=== PATIENT | male | born 1930 | race Caucasian/White ===

== ENCOUNTER 2017-11-27 11:34 | Emergency (ER) | payer MEDICARE, BC ==
[2017-11-27 12:14] LABS: CHLORIDE,CL 107 mmol/L (98-107); SODIUM,NA 140 mmol/L (136-145)
[2017-11-27 12:23] VITALS: BP 162/75
--- NOTE | 2017-11-27 12:40 | EDM.PDOC ---
ED HPI GENERAL MEDICAL PROBLEM - General Chief Complaint: Cardiovascular Problem Stated Complaint: Fullness Time Seen by Provider: 11/27/17 11:41 Source of Information: Reports: Patient, Family History Limitations: Reports: No Limitations - History of Present Illness INITIAL COMMENTS - FREE TEXT/NARRATIVE: Patient complaining of sensation of fullness in chest area. Points to entire chest and epigastric region. He thinks it feels like it is reflux-related and says that he has felt this way in the past and it was due to reflux. Son says patient ate much more than usual last evening, including 6 cookies, fudgepop, and a full dinner. They think that patient has hiatal hernia. Overeating has led to this same situation in the past. 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 Patient called [facility] in regards to his symptoms and they recommended that he come to the ER for evaluation. No other complaints. He denies falls/recent illnesses/HEENT/Resp/GI//Neuro changes. No palpitations. No chest pain or other new pain. No diaphoresis or SOB. - Related Data Allergies Allergy/AdvReac Type Severity Reaction Status Date / Time No Known Drug Allergies Allergy NKDA Verified 08/11/17 06:16 Home Meds: Home Meds Labetalol HCl [Labetalol] 200 mg PO BID 07/25/15 [History] Nitroglycerin [Nitrostat] 0.4 mg SL ASDIRECTED PRN 07/25/15 [History] Simvastatin [Zocor] 40 mg PO BEDTIME 07/25/15 [History] amLODIPine Besylate/Benazepril [Amlodipine-Benazepril 5-10 MG] 1 tab PO DAILY [History] Dexlansoprazole [Dexilant] 60 mg PO DAILY 09/06/15 [History] Aspirin [Adult Low Dose Aspirin EC] 81 mg PO DAILY 11/21/15 [History] Cholecalciferol (Vitamin D3) [Vitamin D3] 2,000 unit PO DAILY 08/06/17 [History] Past Medical History HEENT History: Reports: Cataract, Impaired Vision Cardiovascular History: Reports: CAD, High Cholesterol, Hypertension Respiratory History: Reports: Pneumonia, Recurrent Gastrointestinal History: Reports: GERD, Hiatal Hernia Musculoskeletal History: Reports: Arthritis Other Musculoskeletal History: R THORACIC RIB PAIN Neurological History: Reports: CVA Psychiatric History: Reports: Anxiety, Depression Endocrine/Metabolic History: Reports: Obesity/BMI 30+ - Infectious Disease History Infectious Disease History: Reports: Chicken Pox, Measles, Mumps - Past Surgical History HEENT Surgical History: Reports: Cataract Surgery Cardiovascular Surgical History: Reports: Coronary Artery Bypass, Other (See Below) Respiratory Surgical History: Reports: None GI Surgical History: Reports: Appendectomy, Hernia Repair/Other Endocrine Surgical History: Reports: None Neurological Surgical History: Reports: None Musculoskeletal Surgical History: Reports: None Social & Family History - Family History Family Medical History: Noncontributory - Tobacco Use Smoking Status *Q: Former Smoker Used Tobacco, but Quit: Yes Month/Year Tobacco Last Used: 0 - Caffeine Use Caffeine Use: Reports: Coffee, Soda Other Caffeine Use: diet ED ROS GENERAL - Review of Systems Review Of Systems: See Below Constitutional: Reports: No Symptoms. Denies: Diaphoresis HEENT: Reports: No Symptoms Respiratory: Reports: No Symptoms. Denies: Shortness of Breath Cardiovascular: Denies: Chest Pain, Dyspnea on Exertion, Lightheadedness, Orthopnea, Palpitations, PND, Syncope GI/Abdominal: Reports: No Symptoms : Reports: No Symptoms Musculoskeletal: Reports: No Symptoms Skin: Reports: No Symptoms Neurological: Reports: Pre-Existing Deficit (mild left sided weakness/corner of mouth droop s/p stroke in 1980s) Psychiatric: Reports: No Symptoms ED EXAM, GENERAL - Physical Exam Exam: See Below Exam Limited By: No Limitations General Appearance: Alert, WD/WN, No Apparent Distress Eye Exam: Bilateral Eye: EOMI, PERRL Ears: Normal External Exam, Normal Canal Nose: Normal Inspection Throat/Mouth: Normal Lips, Normal Voice, No Airway Compromise Head: Atraumatic, Normocephalic Neck: Normal Inspection, Supple, Non-Tender, Full Range of Motion Respiratory/Chest: No Respiratory Distress, Lungs Clear, Normal Breath Sounds, No Accessory Muscle Use, Chest Non-Tender Cardiovascular: Normal Peripheral Pulses, Regular Rate, Rhythm, No Edema, No Murmur Peripheral Pulses: 2+: Radial (L), Radial (R) GI/Abdominal: Normal Bowel Sounds, Soft, Non-Tender, Other (rounded abdomen). 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 ) Psychiatric: Normal Affect, Normal Mood Skin Exam: Warm, Dry, Intact, Normal Color, Other (Has growth on left hand near base of thumb (having it removed next Thursday at [facility])) EKG INTERPRETATION EKG Date: 11/27/17 Time: 11:46 Rhythm: NSR Rate (Beats/Min): 76 [place]: LAD-Left [place] Deviation P-Wave: Present QRS: RBBB ST-T: Other (flipped Ts noted V1-V3 No acute ST elevation/depression suggestive of acute ischemia) Comparison: No Change (overall no change from last EKG from 2015) Course - Vital Signs Last Recorded V/S: Last Vital Signs Temp 36.6 C 11/27/17 11:35 Pulse 74 11/27/17 12:20 Resp 16 11/27/17 12:20 BP 162/75 H 11/27/17 12:20 Pulse Ox 97 11/27/17 12:20 - Orders/Labs/Meds Orders: Active Orders 24 hr Category Date Time Status EKG Documentation Completion [RC] ASDIRECTED Care 11/27/17 11:42 Active Chest 2V [CR] Stat Exams 11/27/17 11:42 Taken Labs: Laboratory Tests 11/27/17 11/27/17 11/27/17 Range/Units 11:41 11:41 11:41 WBC 6.2 (4.0-10.2) K/uL RBC 4.50 (4.33-5.41) M/uL Hgb 14.0 (13.1-16.8) g/dL Hct 41.3 (39.0-49.0) % MCV 91.8 (84.0-98.0) fL MCH 31.1 (28.2-33.3) pg MCHC 33.9 (31.7-36.0) g/dL RDW 14.1 (11.2-14.1) % Plt Count 190 (150-350) K/uL Neut % (Auto) 73.6 (45.0-80.0) % Lymph % (Auto) 15.8 (10.0-50.0) % [place] % (Auto) 9.2 (2.0-14.0) % Eos % (Auto) 1.1 (0.0-5.0) % Baso % (Auto) 0.3 (0.0-2.0) % Neut # (Auto) 4.56 (1.40-7.00) K/uL Lymph # (Auto) 0.98 (0.50-3.50) K/uL [place] # (Auto) 0.57 (0.00-1.00) K/uL Eos # (Auto) 0.07 (0.00-0.50) K/uL Baso # (Auto) 0.02 (0.00-0.20) K/uL PT 11.3 (9.8-11.7) SEC INR 1.1 Sodium 140 (136-145) mmol/L Potassium 4.2 (3.5-5.1) mmol/L Chloride 107 (98-107) mmol/L Carbon Dioxide 23.0 (21.0-32.0) mmol/L BUN 16 (7-18) mg/dL Creatinine 0.84 (0.51-1.17) mg/dL Est Cr Clr Drug Dosing 52.86 mL/min Estimated GFR (MDRD) > 60 mL/min Glucose 140 H (74-106) mg/dL Calcium 8.1 L (8.5-10.1) mg/dL Magnesium 2.0 (1.8-2.4) mg/dL Total Bilirubin 0.6 (0.2-1.0) mg/dL AST 15 (15-37) U/L ALT 22 (12-78) U/L Alkaline Phosphatase 110 (46-116) IU/L Creatine Kinase 68 (26-308) U/L Creatine Kinase Index 3.5 H (0.0-2.5) % CK-MB (CK-2) 2.40 (0.00-3.60) ng/mL Troponin I 0.017 (0.000-0.056) ng/mL Total Protein 6.3 L (6.4-8.2) g/dL Albumin 3.3 L (3.4-5.0) g/dL - Radiology Interpretation Free Text/Narrative:: Chest film showed no acute processes. - Re-Assessments/Exams Free Text/Narrative Re-Assessment/Exam: Exam and workup overall unremarkable. Vital signs stable. Included EKG/chest film/troponin/ckmb/cbc/chem. Suspect patient complaint is due to over- indulging in food since last evening and is GI related. Time spent with pt discussing meal frequency, avoiding overeating, and foods less likely to cause GERD complaints. Precautions reviewed with patient and his son. To follow up as needed if there are any problems or other concerns. Departure - Departure Time of Disposition: 12:40 Disposition: Home, Self-Care 01 Condition: Good Clinical Impression: Overeating, Hiatal hernia, Gastric reflux Referrals: Shawna Fischer PHYSICAL AERODYNAMICIST [Primary Care Provider] - Forms: ED Department Discharge Additional Instructions: Food changes as discussed to avoid future episodes. Smaller meals. Do not eat within 2-3 hours of bedtime. Follow up as needed if you have any new or worsening symptoms. - My Orders Last 24 Hours: My Active Orders 11/27/17 11:42 EKG Documentation Completion [RC] ASDIRECTED Chest 2V [CR] Stat - Assessment/Plan Last 24 Hours: My Active Orders 11/27/17 11:42 EKG Documentation Completion [RC] ASDIRECTED Chest 2V [CR] Stat
== END 2017-11-27 13:00 | disposition home or self-care (01) ==
LOC: LL.ED 11:34
DX: K21.9 Gastro-esophageal reflux disease without esophagitis (principal); K44.9 Diaphragmatic hernia without obstruction or gangrene; R63.2 Polyphagia; I10 Essential (primary) hypertension; I25.10 Atherosclerotic heart disease of native coronary artery without angina pectoris; E78.00 Pure hypercholesterolemia, unspecified; Z79.82 Long term (current) use of aspirin; Z79.899 Other long term (current) drug therapy; Z87.891 Personal history of nicotine dependence
CPT/HCPCS: 36000; 36415; 71046; 80053; 82550; 82553; 83735; 84484; 85025; 85610; 93005; 99284

== ENCOUNTER 2020-09-14 13:24 | Emergency (ER) | payer MEDICARE, BC ==
--- NOTE | 2020-09-14 13:58 | EDM.PDOC ---
ED HPI GENERAL MEDICAL PROBLEM - General Chief Complaint: Neuro Symptoms/Deficits Stated Complaint: "trouble with words" resolved Time Seen by Provider: 09/14/20 13:30 Source of Information: Reports: Patient, EMS History Limitations: Reports: No Limitations - History of Present Illness INITIAL COMMENTS - FREE TEXT/NARRATIVE: Patient went to local clinic when he felt like there was a bad taste in his mouth and felt it was a bit hard to speak. Denies slurring words/using wrong words. Had no pain complaints/other acute changes. Clinic was worried about a stroke and called EMS. Patient unhappy that he was taken to ER. Did have stroke in 1986 and has chronic mild left sided mouth droop and some numbness left face and left hand. He feels he is at his neurologic baseline. EMS crew denies any noted speech difficulties or other new focal deficits en route. No recent health changes/falls/med changes/URIs/sinus infections. - Related Data Allergies Allergy/AdvReac Type Severity Reaction Status Date / Time No Known Drug Allergies Allergy NKDA Verified 08/11/17 06:16 Home Meds: Home Meds Labetalol HCl [Labetalol] 200 mg PO BID 07/25/15 [History] Nitroglycerin [Nitrostat] 0.4 mg SL ASDIRECTED PRN 07/25/15 [History] Simvastatin [Zocor] 20 mg PO BEDTIME 07/25/15 [History] amLODIPine Besylate/Benazepril [Amlodipine-Benazepril 5-10 MG] 1 tab PO DAILY 07/25/15 [History] Dexlansoprazole [Dexilant] 60 mg PO DAILY 09/06/15 [History] Aspirin [Adult Low Dose Aspirin EC] 81 mg PO DAILY 11/21/15 [History] Cholecalciferol (Vitamin D3) [Vitamin D3] 2,000 unit PO DAILY 08/06/17 [History] Past Medical History HEENT History: Reports: Cataract, Impaired Vision Cardiovascular History: Reports: CAD, High Cholesterol, Hypertension Respiratory History: Reports: Pneumonia, Recurrent Gastrointestinal History: Reports: GERD, Hiatal Hernia Musculoskeletal History: Reports: Arthritis Other Musculoskeletal History: R THORACIC RIB PAIN Neurological History: Reports: CVA Psychiatric History: Reports: Anxiety, Depression Endocrine/Metabolic History: Reports: Obesity/BMI 30+ - Infectious Disease History Infectious Disease History: Reports: Chicken Pox, Measles, Mumps - Past Surgical History HEENT Surgical History: Reports: Cataract Surgery Cardiovascular Surgical History: Reports: Coronary Artery Bypass, Other (See Below) Respiratory Surgical History: Reports: None GI Surgical History: Reports: Appendectomy, Hernia Repair/Other Endocrine Surgical History: Reports: None Neurological Surgical History: Reports: None Musculoskeletal Surgical History: Reports: None Social & Family History - Family History Family Medical History: No Pertinent Family History - Caffeine Use Caffeine Use: Reports: Coffee, Soda Other Caffeine Use: diet ED ROS GENERAL - Review of Systems Review Of Systems: Comprehensive ROS is negative, except as noted in HPI. ED EXAM, GENERAL - Physical Exam Exam: See Below Exam Limited By: No Limitations General Appearance: Alert, WD/WN, No Apparent Distress Eye Exam: Bilateral Eye: EOMI, PERRL Ears: Normal External Exam, Normal Canal, Hearing Grossly Normal Nose: No: Nasal Deformity, Nasal Swelling, Nasal Drainage Throat/Mouth: Normal Voice, No Airway Compromise, Other (mild left corner mouth droop). No: Dysphagia Head: Atraumatic, Normocephalic Neck: Normal Inspection, Supple, Non-Tender, Full Range of Motion Respiratory/Chest: No Respiratory Distress, Lungs Clear, Normal Breath Sounds, No Accessory Muscle Use, Chest Non-Tender Cardiovascular: Normal Peripheral Pulses, Regular Rate, Rhythm, No Edema, No Murmur GI/Abdominal: Soft, Non-Tender, No Distention (Male) Exam: Deferred Rectal (Males) Exam: Deferred Back Exam: Normal Inspection Extremities: Normal Inspection, Normal Range of Motion, Non-Tender, No Pedal Edema, Normal Capillary Refill Neurological: Alert, Oriented, Normal Cognition, Normal Gait, Other (Moves all 4 limbs equally/appropriate tone and strength. ) Psychiatric: Normal Affect, Normal Mood Skin Exam: Warm, Dry, Intact, Normal Color Course - Vital Signs Last Recorded V/S: Last Vital Signs Temp 36.6 C 09/14/20 13:31 Pulse 70 09/14/20 13:31 Resp 19 09/14/20 13:31 BP 180/76 H 09/14/20 13:31 Pulse Ox 97 09/14/20 13:31 - Orders/Labs/Meds Orders: Active Orders 24 hr Category Date Time Status Head wo Cont [CT] Stat Exams 09/14/20 13:24 Ordered Labs: Laboratory Tests 09/14/20 09/14/20 Range/Units 13:35 13:35 WBC 5.4 (4.0-10.2) K/uL RBC 4.28 L (4.33-5.41) M/uL Hgb 13.5 (13.1-16.8) g/dL Hct 41.2 (39.0-49.0) % MCV 96.3 D (84.0-98.0) fL MCH 31.5 (28.2-33.3) pg MCHC 32.8 (31.7-36.0) g/dL RDW 14.3 H (11.2-14.1) % Plt Count 198 (150-350) K/uL Neut % (Auto) 68.7 (45.0-80.0) % Lymph % (Auto) 18.7 (10.0-50.0) % [place] % (Auto) 10.2 (2.0-14.0) % Eos % (Auto) 2.0 (0.0-5.0) % Baso % (Auto) 0.4 (0.0-2.0) % Neut # (Auto) 3.72 (1.40-7.00) K/uL Lymph # (Auto) 1.01 (0.50-3.50) K/uL [place] # (Auto) 0.55 (0.00-1.00) K/uL Eos # (Auto) 0.11 (0.00-0.50) K/uL Baso # (Auto) 0.02 (0.00-0.20) K/uL Sodium 144 (136-145) mmol/L Potassium 4.4 (3.5-5.1) mmol/L Chloride 108 H (98-107) mmol/L Carbon Dioxide 26.0 (21.0-32.0) mmol/L BUN 15 (7-18) mg/dL Creatinine 0.85 (0.51-1.17) mg/dL Est Cr Clr Drug Dosing TNP Estimated GFR (MDRD) > 60 mL/min Glucose 132 H (70-99) mg/dL Calcium 8.2 L (8.5-10.1) mg/dL Magnesium 2.0 (1.8-2.4) mg/dL Total Bilirubin 0.5 (0.2-1.0) mg/dL AST 20 (15-37) U/L ALT 25 (12-78) U/L Alkaline Phosphatase 111 (46-116) IU/L Total Protein 6.3 L (6.4-8.2) g/dL Albumin 3.5 (3.4-5.0) g/dL - Re-Assessments/Exams Free Text/Narrative Re-Assessment/Exam: 09/14/20 13:44 Stroke code called upon arrival and patient sent to CT. Patient feels strongly that this is not attributable to a stroke and made it clear he did not want a full workup after usual stroke evaluation was reviewed with him. Stroke code cancelled 15 min after arrival. No acute findings on exam. He was agreeable with basic labs and gave the OK to do a CBC/Chem/Mag. He continues to report that he has a funny taste in his mouth that makes it uncomfortable to talk but denies any issues with getting words out/sentence structure/being understood. He says he would not have gone to clinic if he knew "all of this was going to happen". CT was performed immediately after arrival. Patient showed no acute deficits during exam and interview. He has residual numbness of left hand/left side of face and left mouth droop from a stoke from 1986 and no change in this. Wears dentures. Denies any signs of infection around gums. No cold/sinus symptoms. Uncertain as to cause of patient's complaints. BP improved when rechecked. Initially systolic 180. Precautions reviewed. To return to ER if he has any problems/changes/concerns. Departure - Departure Time of Disposition: 14:33 Disposition: Home, Self-Care 01 Condition: Good Clinical Impression: Bad taste in mouth, Speech problem - Discharge Information *PRESCRIPTION DRUG MONITORING PROGRAM REVIEWED*: Not Applicable *COPY OF PRESCRIPTION DRUG MONITORING REPORT IN PATIENT [place]: Not Applicable Referrals: Shawna Fischer NP [Primary Care Provider] - Forms: ED Department Discharge Additional Instructions: Observe for any additional changes. Follow up in ER if any other concerns/neurological changes are noted. Also, your systolic blood pressure was a bit high today. Please try to get your blood pressure rechecked three different days next week and follow up in the clinic to get the patterns looked at. You may need medication adjustment. Sepsis Event Note (ED) - Focused Exam Vital Signs: Vital Signs Temp Pulse Resp BP Pulse Ox 09/14/20 13:31 36.6 C 70 19 180/76 H 97 - My Orders Last 24 Hours: My Active Orders 09/14/20 13:24 Head wo Cont [CT] Stat - Assessment/Plan Last 24 Hours: My Active Orders 09/14/20 13:24 Head wo Cont [CT] Stat
[2020-09-14 14:04] LABS: CHLORIDE,CL 108 mmol/L (98-107); SODIUM,NA 144 mmol/L (136-145)
[2020-09-14 15:05] VITALS: BP 150/63; PULSE 66
== END 2020-09-14 14:52 | disposition home or self-care (01) ==
LOC: LL.ED 13:24
DX: R43.9 Unspecified disturbances of smell and taste (principal); R47.9 Unspecified speech disturbances; I25.10 Atherosclerotic heart disease of native coronary artery without angina pectoris; E78.00 Pure hypercholesterolemia, unspecified; I10 Essential (primary) hypertension; E66.9 Obesity, unspecified; Z68.30 Body mass index [BMI] 30.0-30.9, adult; Z79.899 Other long term (current) drug therapy
CPT/HCPCS: 70450; 80053; 83735; 85025; 99283; 99285-25